=== PATIENT | female | born 1950 | race Caucasian/White ===

== ENCOUNTER → 2023-05-24 10:47 | Outpatient (CLI) | payer MEDICARE, OTHER, SELFPAY ==
--- NOTE | ~2023-05-24 | CT_ITS ---
EXAMINATION: CT knee LT wo con DATE: 05/24/2023 11:10 INDICATION: Left knee pain. TECHNIQUE: Computed tomography (CT) of the left knee was performed without intravenous contrast. Auto mated exposure control and iterative reconstruction technique were employed. The dose-length product was 202.02 mGy-cm. COMPARISON: None FINDINGS: Bone alignment is normal. There is a transverse fracture of patella with 2 mm step-off at t he articular surface. There is mild tricompartmental osteoarthritis. There is a small knee joint effu mary. IMPRESSION: 1. Transverse fracture of patella. 2. Mild left knee osteoarthritis. 3. Small left knee joint effusion. Reviewed, dictated and finalized at location E.
== END ==
DX: S82.032A Displaced transverse fracture of left patella, initial encounter for closed fracture (principal); M17.12 Unilateral primary osteoarthritis, left knee; M25.462 Effusion, left knee; X58.XXXA Exposure to other specified factors, initial encounter
CPT/HCPCS: 73700